=== PATIENT | female | born 1995 | race Two or more races ===

== ENCOUNTER 2023-10-05 21:49 | Emergency (ER) | payer MEDICAID, OTHER ==
[~2023-10-05] VITALS: Ht 152.4 cm; Wt 61.7 kg
[2023-10-05 22:01] VITALS: BP 99/60; PULSE 79; RESP 18; O2SAT 98
== END 2023-10-06 00:57 | disposition left against medical advice (07) ==
LOC: ER 21:49
DX: O20.8 Other hemorrhage in early pregnancy (principal); Z53.21 Procedure and treatment not carried out due to patient leaving prior to being seen by health care provider; Z3A.01 Less than 8 weeks gestation of pregnancy